=== PATIENT | female | born 1980 ===

== ENCOUNTER 2018-10-17 10:56 | Outpatient (CLI) | payer OTHER ==
[~2018-10-17] VITALS: Ht 149.9 cm; Wt 63.5 kg
== END 2018-10-17 11:15 | disposition home or self-care (01) ==
LOC: OFIC 805 10:56
DX: J30.89 Other allergic rhinitis (principal); R09.81 Nasal congestion; R51 Headache; G50.1 Atypical facial pain

== ENCOUNTER 2018-10-24 11:11 | Outpatient (CLI) | payer OTHER ==
[~2018-10-24] VITALS: Ht 121.9 cm; Wt 63.5 kg
== END 2018-10-24 11:25 | disposition home or self-care (01) ==
LOC: OFIC 805 11:11
DX: G44.89 Other headache syndrome (principal); J30.89 Other allergic rhinitis

== ENCOUNTER 2019-01-30 12:12 | Outpatient (CLI) | payer OTHER | END 2019-01-30 12:13 | disposition home or self-care (01) | LOC: LAB 12:12 | DX: N20.0 Calculus of kidney (principal) ==